=== PATIENT | female | born 1965 | race Caucasian/White ===

== ENCOUNTER 2023-10-24 15:12 | Outpatient (CLI) | payer MEDICAID ==
--- NOTE | 2023-10-24 19:09 | XRAY Report ---
Toe(s) 2+V LT HISTORY: 58 years of age, LEFT TOE PAIN TECHNIQUE: Toe(s) 2+V LT COMPARISON: None. FINDINGS/IMPRESSION: Small ossification about the first proximal phalangeal base, representing prior injury. No acute frac ture or dislocation. Joint spaces are well maintained. Reviewed by: Chika Rinaldi MD on 10/24/2023 7:08 PM PDT Approved by: Chika Rinaldi MD on 10/24/2023 7:08 PM PDT Station ID: [id number]
== END 2023-10-24 23:59 | disposition home or self-care (01) ==
LOC: DI.N 15:12
PROVIDERS: ATTEND Physician Assistant
DX: M79.675 Pain in left toe(s) (principal)
CPT/HCPCS: 73660